=== PATIENT | female | born 1945 | race Caucasian/White ===

== ENCOUNTER → 2016-07-09 | Outpatient (CLI) | payer MEDICARE, OTHER ==
[~2016-07-09] VITALS: Ht 162.6 cm; Wt 77.1 kg
== END ==
LOC: OPSV 06-25 11:00
DX: M81.0 Age-related osteoporosis without current pathological fracture (principal)
CPT/HCPCS: 96372

== ENCOUNTER → 2016-11-26 | Outpatient (CLI) | payer MEDICARE, OTHER | LOC: RAD 12:45 | DX: G47.09 Other insomnia (principal); F33.41 Major depressive disorder, recurrent, in partial remission; E78.2 Mixed hyperlipidemia | CPT/HCPCS: 71020 ==

== ENCOUNTER → 2020-08-25 | Outpatient (CLI) | payer MEDICARE, OTHER | LOC: EXRD 08-18 13:00 | DX: M81.8 Other osteoporosis without current pathological fracture (principal) | CPT/HCPCS: 77080 ==

== ENCOUNTER → 2020-11-03 | Outpatient (CLI) | payer MEDICARE, OTHER | LOC: KOH-I 12:59 | DX: G44.89 Other headache syndrome (principal); G31.9 Degenerative disease of nervous system, unspecified | CPT/HCPCS: 70450 ==

== ENCOUNTER → 2021-10-04 | Outpatient (CLI) | payer MEDICARE, OTHER ==
[2021-10-04 11:42] LABS: RED BLOOD COUNT 5.06 M/UL (4.00-5.10)
[2021-10-04 12:08] LABS: BUN/CREATININE RATIO 28 (0-10)
[2021-10-06 10:14] LABS: CHOLESTEROL, TOTAL 147 mg/dL (100-199); HDL SIZE 9.7 nm (>=9.2); HDL-C 52 mg/dL (>39); HDL-P (TOTAL) 29.9 umol/L (>=30.5); LARGE HDL-P 8.4 umol/L (>=4.8); LARGE VLDL-P 6.2 nmol/L (<=2.7); LDL SIZE 20.9 nm (>20.5); LDL SIZE 20.9 nm (>=20.8); LDL-C 75 mg/dL (0-99); LDL-P 872 nmol/L (<1000); LP-IR SCORE 45 (<=45); SMALL LDL-P 452 nmol/L (<=527); TRIGLYCERIDES 111 mg/dL (0-149); VLDL SIZE 50.2 nm (<=46.6)
[2021-10-08 19:11] LABS: 25-HYDROXY, VITAMIN D 22 ng/mL (.); 25-HYDROXY, VITAMIN D-2 5.4 ng/mL (.); 25-HYDROXY, VITAMIN D-3 17 ng/mL (.)
== END ==
LOC: LAB 11:12
PROVIDERS: Emergency Medicine
DX: M25.542 Pain in joints of left hand (principal); I25.10 Atherosclerotic heart disease of native coronary artery without angina pectoris; I10 Essential (primary) hypertension; K21.9 Gastro-esophageal reflux disease without esophagitis; F41.1 Generalized anxiety disorder; M05.9 Rheumatoid arthritis with rheumatoid factor, unspecified; E55.9 Vitamin D deficiency, unspecified; E78.2 Mixed hyperlipidemia
CPT/HCPCS: 36415; 80053; 80061; 82306; 83704; 84443; 84550; 85025; 86038; 86140; 86431